=== PATIENT | male | born 1965 | race Caucasian/White ===

== ENCOUNTER 2017-04-25 11:27 | Emergency (ER) | payer SELFPAY ==
[~2017-04-25 11:27] MED LIST: *DENIES
== END 2017-04-25 12:09 | disposition home or self-care (01) ==
LOC: ER 11:27
DX: Z48.01 Encounter for change or removal of surgical wound dressing (principal); F17.200 Nicotine dependence, unspecified, uncomplicated; Z88.0 Allergy status to penicillin
CPT/HCPCS: 99282